=== PATIENT | female | born 1995 | race Two or more races ===

== ENCOUNTER 2018-09-22 23:10 | Emergency (ER) | payer MEDICAID ==
[~2018-09-22] VITALS: Ht 162.6 cm; Wt 54.4 kg
--- NOTE | 2018-09-22 23:25 | NUR ---
Pt ambulated into ER with steady gait with the c/o worsening right hand pain after punching a wall 3 weeks ago. Right hand noted to have swelling and abrasion on 2nd/4th finger with no active bleeding at this time. ROM WNL and sensation present. Pt is AAO x4. Pt placed in room 02b. Safe environment implemented.
--- NOTE | 2018-09-23 00:45 | NUR ---
Ulnar gutter splint placed, CMS WNL. Patient discharged to home in stable conditon. Written and verbal after care instructions given. Patient verbalizes understanding of instructions. Pt states that she will wait for XRAY cd in waiting room. All belongings taken.
[2018-09-23 00:48] VITALS: BP 135/75
== END 2018-09-23 00:49 | disposition home or self-care (01) ==
LOC: ER 23:16
DX: S62.324A Displaced fracture of shaft of fourth metacarpal bone, right hand, initial encounter for closed fracture (principal); F17.200 Nicotine dependence, unspecified, uncomplicated; Z59.0 Homelessness; W22.01XA Walked into wall, initial encounter; Y93.89 Activity, other specified; Y92.89 Other specified places as the place of occurrence of the external cause; Y99.8 Other external cause status
CPT/HCPCS: 73110; 73130; A4663

== ENCOUNTER 2018-10-20 20:18 | Emergency (ER) | payer MEDICAID ==
[~2018-10-20] VITALS: Ht 162.6 cm; Wt 54.4 kg
--- NOTE | 2018-10-20 21:12 | NUR ---
Patient discharged to home in stable conditon. Written and verbal after care instructions given. Patient verbalizes understanding of instructions.
== END 2018-10-20 21:12 | disposition home or self-care (01) ==
LOC: ER 20:18
DX: S62.304D Unspecified fracture of fourth metacarpal bone, right hand, subsequent encounter for fracture with routine healing (principal); F17.290 Nicotine dependence, other tobacco product, uncomplicated; Z59.0 Homelessness; X58.XXXD Exposure to other specified factors, subsequent encounter
CPT/HCPCS: A4663